=== PATIENT | male | born 1955 | race Caucasian/White ===

== ENCOUNTER → 2016-10-18 | Outpatient (CLI) | payer BC | LOC: RAD 15:36 | DX: R06.02 Shortness of breath (principal); R00.0 Tachycardia, unspecified; J90 Pleural effusion, not elsewhere classified; R09.89 Other specified symptoms and signs involving the circulatory and respiratory systems | CPT/HCPCS: 71020 ==

== ENCOUNTER 2020-03-22 09:30 | Inpatient (IN) | payer BC ==
[~2020-03-22] VITALS: Ht 162.6 cm; Wt 65.8 kg
[2020-03-22 10:50] LABS: HEMOGLOBIN 14.2 gm/dl (14.0-17.5); RED BLOOD COUNT 4.53 M/UL (4.20-5.50); WHITE BLOOD COUNT 10.6 K/UL (4.5-11.0)
[2020-03-23 00:33] LABS: HEMOGLOBIN 13.4 gm/dl (14.0-17.5); RED BLOOD COUNT 4.27 M/UL (4.20-5.50)
[2020-03-24 14:14] LABS: HEMATOCRIT 37.5 % (37.5-51.0)
[2020-03-24 14:40] LABS: HEMOGLOBIN 13.6 gm/dl (14.0-17.5); RED BLOOD COUNT 4.35 M/UL (4.20-5.50)
[2020-03-24 14:42] LABS: WHITE BLOOD COUNT 8.2 K/UL (4.5-11.0)
[2020-03-25 04:33] LABS: WHITE BLOOD COUNT 7.2 K/UL (4.5-11.0)
[2020-03-25 04:44] LABS: HEMOGLOBIN 11.6 gm/dl (14.0-17.5); RED BLOOD COUNT 3.75 M/UL (4.20-5.50)
[2020-03-25 10:16] LABS: CYTOMEGALOVIRUS Not Detected (Negative); ENTEROVIRUS Not Detected (Negative); ESCHERICHIA COLI K1 Not Detected (Negative); HAEMOPHILUS INFLUENZAE Not Detected (Negative); HERPES SIMPLEX VIRUS 1 Not Detected (Negative); LISTERIA MONOCYTOGENES Not Detected (Negative); NEISERRIA MENINGITIDIS Not Detected (Negative); STREPTOCOCCUS AGALACTIAE Not Detected (Negative); STREPTOCOCCUS PNEUMONIAE Not Detected (Negative)
[2020-03-25 10:17] LABS: CRYPTOCOCCUS NEOFORMANS/GATTII Not Detected (Negative); HERPES SIMPLEX VIRUS 2 Not Detected (Negative); HUMAN HERPESVIRUS 6 Not Detected (Negative); HUMAN PARECHOVIRUS Not Detected (Negative); VARICELLA ZOSTER VIRUS Not Detected (Negative)
[2020-03-25 10:50] LABS: GLUCOSE,CSF 107 mg/dL (50-80); TOTAL PROTEIN,CSF 54 mg/dL (20-45)
[2020-03-25 11:10] LABS: RBC (AUTOMATED) 0 10^6 (0); WBC (AUTOMATED 1 10^3 (0-5)
[2020-03-25] MEDS ORDERED: KEPPRA 500 MG500 MG PO (14:27)
[2020-03-25] MEDS ORDERED: ATORVASTATIN CA20 MG PO (14:27)
[2020-03-25] MEDS ORDERED: FOLIC ACID 1 MG1 MG PO (14:27)
[2020-03-25] MEDS ORDERED: AMLODIPINE BESYL5 MG PO ×2 (14:27→14:49)
[2020-03-25] MEDS ORDERED: VITAMIN B-1100 M1 PO (14:27)
[2020-03-25] MEDS ORDERED: HUMALOG 10100 UNITS/ SC (14:27)
[2020-03-25] MEDS ORDERED: LANTUS INS100 UTS/M1 SC (14:27)
[2020-03-25] MEDS ORDERED: ASPIRIN EC81 MG PO (14:27)
--- NOTE | 2020-03-25 20:19 | NUR ---
NOTIFIED BEVERLY CARTER PT FAMILY ON THE PHONE AND DID NOT RECIEVE SLIDING SCALE ON DISCHARGE. BEVERLY SAID TO VERBALLY GIVE PT FAMILY INSULIN SCALE OVER THE PHONE. FAMILY OF PT WAS GIVEN THE MED DOSE SCALE AND VERIFIED CORRECT DOSE OVER THE PHONE.
[2020-03-27 16:09] LABS: HSV-1 DNA Negative (Negative); HSV-2 DNA Negative (Negative)
== END 2020-03-25 17:24 | disposition home or self-care (01) | DRG 101 ==
LOC: ER1 09:30 → CDU 13:03 → M/S 13:03
PROVIDERS: Emergency Medicine; Physician Assistant; ADMIT Internal Medicine
PROC: 009U3ZX Drainage of Spinal Canal, Percutaneous Approach, Diagnostic (ICD-10-PCS; principal; 2020-03-25)
PROC: B01BYZZ Fluoroscopy of Spinal Cord using Other Contrast (ICD-10-PCS; 2020-03-25)
DX: R56.9 Unspecified convulsions (principal); G45.9 Transient cerebral ischemic attack, unspecified; G93.40 Encephalopathy, unspecified; N17.9 Acute kidney failure, unspecified; E11.65 Type 2 diabetes mellitus with hyperglycemia; I10 Essential (primary) hypertension; E78.5 Hyperlipidemia, unspecified; R53.81 Other malaise; Z79.899 Other long term (current) drug therapy; Z79.4 Long term (current) use of insulin; R51.9 Headache, unspecified; R41.0 Disorientation, unspecified; E87.6 Hypokalemia; I16.0 Hypertensive urgency; R80.9 Proteinuria, unspecified; F17.210 Nicotine dependence, cigarettes, uncomplicated; H40.9 Unspecified glaucoma; Z20.822 Contact with and (suspected) exposure to COVID-19; E11.22 Type 2 diabetes mellitus with diabetic chronic kidney disease; I12.9 Hypertensive chronic kidney disease with stage 1 through stage 4 chronic kidney disease, or unspecified chronic kidney disease; N18.30 Chronic kidney disease, stage 3 unspecified
CPT/HCPCS: 36415; 70450; 70496; 70498; 70551; 71045; 80048; 80053; 80202; 81001; 82140; 82550; 82553; 82607; 82747; 82945; 82962; 83036; 83605; 83690; 83735; 83874; 83880; 84100; 84157; 84207; 84439; 84443; 84484; 85025; 85610; 85730; 86140; 87040; 87070; 87205; 87483; 89051; 92507; 92610; 93005; 96365; 96366; 96372; 96375; 97116-GP-CQ; 97161; 97166; 97535; 99285; G0378; G0480; J0133; J0290; J0360; J0696; J1650; J1953; J3370; J3430; J7030; J7070; Q9967; U0002